=== PATIENT | female | born 1995 | race Caucasian/White ===

== ENCOUNTER 2017-02-18 13:15 | Inpatient (IN) | payer OTHER ==
[2017-02-18 14:30] LABS: Hematocrit 37 % (35-47); Hemoglobin 12.4 g/dl (12.0-16.0); Mean Corpuscular HGB Conc 34 g/dl (31-36); Mean Corpuscular Hemoglobin 29 pg (27-31); Mean Corpuscular Volume 84 fL (80-97); Mean Platelet Volume 10 um3 (7.4-10.4); Red Blood Count 4.33 10^6/ul (4.0-5.4); Red Cell Distribution Width 14 % (10.5-15); Urine Bilirubin Negative (Negative); Urine Glucose Negative (Negative); Urine Nitrite Negative (Negative); White Blood Count 6.3 10^3/ul (3.5-10.8)
[2017-02-18 14:50] LABS: ALT 13 U/L (7-52); AST 16 U/L (13-39); Albumin 4.3 g/dL (3.2-5.2); Alkaline Phosphatase 80 U/L (34-104); Anion Gap 5 mmol/L (2-11); BUN/Creatinine Ratio 13.8 (8-20); Blood Urea Nitrogen 12 mg/dL (6-24); CO2 Carbon Dioxide 25 mmol/L (22-32); Calcium 9.2 mg/dL (8.6-10.3); Chloride 108 mmol/L (101-111); EGFR African American 107.9 (>60); EGFR Non-African American 83.9 (>60); Globulin 2.6 g/dL (2-4); Glucose 84 mg/dL (70-100); Potassium 4.1 mmol/L (3.5-5.0); Sodium 138 mmol/L (133-145); Total Protein 6.9 g/dL (6.4-8.9)
[2017-02-18 14:58] LABS: Benzodiazepine Urine Screen None Detected (None Detect)
[2017-02-18 15:01] LABS: Acetaminophen < 15 mcg/mL; Alcohol < 10 mg/dL (<10); Salicylate < 2.50 mg/dL (<30)
[2017-02-18 15:19] LABS: TSH (Thyroid Stimulating Horm) 0.93 mcIU/mL (0.34-5.60)
--- NOTE | 2017-02-18 17:57 | ED ---
Psychiatric Complaint - HPI Summary HPI Summary: Patient presents to the ED with CC of suicidal ideations. She told her therapist today she wanted to "jump off a bridge." Denies HI. Denies self harm behaviors, drugs or ETOH use. She has been having these thoughts for years per patient, but have recently gotten worse. School is a stressor. Denies any history of bipolar or queenie. Denies pain at this time. Notes to anxiety which is worse now that she is in the ED, but again states she does not need medication for relief and just wants to speak with someone about her SI. - History Of Current Complaint Chief Complaint: EDMentalHealth Time Seen by Provider: 02/18/17 13:23 Hx Obtained From: Patient ?: No Onset/Duration: Gradual Onset Timing: Hours Severity Initially: Moderate Severity Currently: Moderate Character: Depressed, Anxious Aggravating Factor(s): Nothing Alleviating Factor(s): Counseling Associated Signs And Symptoms: Positive: Social Withdrawal, Social Isolation Related History: Positive For: Prior Psychiatric Issues - depression Has Suicidal: Reports: Thoughts - jump off a bridge - Risk Factor(s) Completed Suicide Risk Factors: Negative - Allergies/Home Medications Allergies/Adverse Reactions: Allergies Allergy/AdvReac Type Severity Reaction Status Date / Time No Known Allergies Allergy Verified 02/18/17 13:31 PMH/Surg Hx/FS Hx/Imm Hx Previously Healthy: Yes Psychiatric History: Denies: Hx Eating Disorder, Hx of Violent Episodes Against Others - Immunization History Hx Pertussis Vaccination: No Immunizations Up to Date: Unable to Obtain/Confirm Infectious Disease History: No Infectious Disease History: Denies: Traveled Outside the [place] in Last 30 Days - Social History Occupation: Student Lives: With Family Alcohol Use: Occasionally Hx Substance Use: Yes Substance Use Type: Reports: Marijuana Substance Use Comment - Amount & Last Used: weekly Hx Tobacco Use: Yes Smoking Status (MU): Current Some Day Smoker Review of Systems Constitutional: Negative Negative: Fever, Chills, Fatigue Negative: Photophobia, Blurred Vision ENT: Negative Negative: Palpitations, Chest Pain Negative: Shortness Of Breath, Cough Genitourinary: Negative Positive: no symptoms reported, see HPI Musculoskeletal: Negative Neurological: Negative Positive: Anxious, Depressed All Other Systems Reviewed And Are Negative: Yes Physical Exam Triage Information Reviewed: Yes Vital Signs On Initial Exam: Initial Vitals Temp Pulse Resp BP Pulse Ox 99.2 F 91 16 140/76 100 10/11/17 13:28 02/18/17 13:28 02/18/17 13:28 02/18/17 13:28 02/18/17 13:28 Vital Signs Reviewed: Yes Appearance: Positive: Well-Appearing, Well-Nourished Skin: Positive: Warm, Skin Color Reflects Adequate Perfusion Head/Face: Positive: Normal Head/Face Inspection Eyes: Positive: EOMI, PADMINI, Conjunctiva Clear Neck: Positive: Supple, No Lymphadenopathy Respiratory/Lung Sounds: Positive: Clear to Auscultation, Breath Sounds Present Cardiovascular: Positive: Normal, RRR, Pulses are Symmetrical in both Upper and Lower Extremities Musculoskeletal: Positive: Normal, Strength/ROM Intact Neurological: Positive: Normal, Sensory/Motor Intact, Alert, Oriented to Person Place, Time, Speech Normal Psychiatric: Positive: Anxious, Depressed, Other - patient is cooperative for exam and in NAD AVPU Assessment: Alert - [place] Coma Scale Coma Scale Total: 15 Diagnostics - Vital Signs Vital Signs Temp Pulse Resp BP Pulse Ox 02/18/17 13:28 99.2 F 91 16 140/76 100 - Laboratory Lab Results: Lab Results 02/18/17 02/18/17 02/18/17 Range/Units 14:15 14:15 14:15 WBC 6.3 (3.5-10.8) 10^3/ul RBC 4.33 (4.0-5.4) 10^6/ul Hgb 12.4 (12.0-16.0) g/dl Hct 37 (35-47) % MCV 84 (80-97) fL MCH 29 (27-31) pg MCHC 34 (31-36) g/dl RDW 14 (10.5-15) % Plt Count 173 (150-450) 10^3/ul MPV 10 (7.4-10.4) um3 Neut % (Auto) 63.7 (38-83) % Lymph % (Auto) 27.9 (25-47) % Smyth % (Auto) 6.3 (1-9) % Eos % (Auto) 1.4 (0-6) % Baso % (Auto) 0.7 (0-2) % Absolute Neuts (auto) 4.0 (1.5-7.7) 10^3/ul Absolute Lymphs (auto) 1.8 (1.0-4.8) 10^3/ul Absolute Monos (auto) 0.4 (0-0.8) 10^3/ul Absolute Eos (auto) 0.1 (0-0.6) 10^3/ul Absolute Basos (auto) 0 (0-0.2) 10^3/ul Absolute Nucleated RBC 0 10^3/ul Nucleated RBC % 0 Sodium 138 (133-145) mmol/L Potassium 4.1 (3.5-5.0) mmol/L Chloride 108 (101-111) mmol/L Carbon Dioxide 25 (22-32) mmol/L Anion Gap 5 (2-11) mmol/L BUN 12 (6-24) mg/dL Creatinine 0.87 (0.51-0.95) mg/dL Est GFR ( Amer) 107.9 (>60) Est GFR (Non-Af Amer) 83.9 (>60) BUN/Creatinine Ratio 13.8 (8-20) Glucose 84 (70-100) mg/dL Calcium 9.2 (8.6-10.3) mg/dL Total Bilirubin 0.40 (0.2-1.0) mg/dL AST 16 (13-39) U/L ALT 13 (7-52) U/L Alkaline Phosphatase 80 (34-104) U/L Total Protein 6.9 (6.4-8.9) g/dL Albumin 4.3 (3.2-5.2) g/dL Globulin 2.6 (2-4) g/dL Albumin/Globulin Ratio 1.7 (1-3) TSH 0.93 (0.34-5.60) mcIU/mL Urine Color Urine Appearance Urine pH (5-9) Ur Specific [place] (1.010-1.030) Urine Protein (Negative) Urine Ketones (Negative) Urine Blood (Negative) Urine Nitrate (Negative) Urine Bilirubin (Negative) Urine Urobilinogen (Negative) Ur Leukocyte Esterase (Negative) Urine Glucose (Negative) Salicylates < 2.50 (<30) mg/dL Urine Opiates Screen None detected (None Detect) Acetaminophen < 15 mcg/mL Ur Barbiturates Screen None detected (None Detect) Ur Phencyclidine Scrn None detected (None Detect) Ur Amphetamines Screen None detected (None Detect) U Benzodiazepines Scrn None detected (None Detect) Urine Cocaine Screen None detected (None Detect) U Cannabinoids Screen Presumptive positive H (None Detect) Serum Alcohol < 10 (<10) mg/dL 02/18/17 Range/Units 14:15 WBC (3.5-10.8) 10^3/ul RBC (4.0-5.4) 10^6/ul Hgb (12.0-16.0) g/dl Hct (35-47) % MCV (80-97) fL MCH (27-31) pg MCHC (31-36) g/dl RDW (10.5-15) % Plt Count (150-450) 10^3/ul MPV (7.4-10.4) um3 Neut % (Auto) (38-83) % Lymph % (Auto) (25-47) % Smyth % (Auto) (1-9) % Eos % (Auto) (0-6) % Baso % (Auto) (0-2) % Absolute Neuts (auto) (1.5-7.7) 10^3/ul Absolute Lymphs (auto) (1.0-4.8) 10^3/ul Absolute Monos (auto) (0-0.8) 10^3/ul Absolute Eos (auto) (0-0.6) 10^3/ul Absolute Basos (auto) (0-0.2) 10^3/ul Absolute Nucleated RBC 10^3/ul Nucleated RBC % Sodium (133-145) mmol/L Potassium (3.5-5.0) mmol/L Chloride (101-111) mmol/L Carbon Dioxide (22-32) mmol/L Anion Gap (2-11) mmol/L BUN (6-24) mg/dL Creatinine (0.51-0.95) mg/dL Est GFR ( Amer) (>60) Est GFR (Non-Af Amer) (>60) BUN/Creatinine Ratio (8-20) Glucose (70-100) mg/dL Calcium (8.6-10.3) mg/dL Total Bilirubin (0.2-1.0) mg/dL AST (13-39) U/L ALT (7-52) U/L Alkaline Phosphatase (34-104) U/L Total Protein (6.4-8.9) g/dL Albumin (3.2-5.2) g/dL Globulin (2-4) g/dL Albumin/Globulin Ratio (1-3) TSH (0.34-5.60) mcIU/mL Urine Color Yellow Urine Appearance Clear Urine pH 6.0 (5-9) Ur Specific [place] 1.016 (1.010-1.030) Urine Protein Negative (Negative) Urine Ketones Negative (Negative) Urine Blood Negative (Negative) Urine Nitrate Negative (Negative) Urine Bilirubin Negative (Negative) Urine Urobilinogen Negative (Negative) Ur Leukocyte Esterase Negative (Negative) Urine Glucose Negative (Negative) Salicylates (<30) mg/dL Urine Opiates Screen (None Detect) Acetaminophen mcg/mL Ur Barbiturates Screen (None Detect) Ur Phencyclidine Scrn (None Detect) Ur Amphetamines Screen (None Detect) U Benzodiazepines Scrn (None Detect) Urine Cocaine Screen (None Detect) U Cannabinoids Screen (None Detect) Serum Alcohol (<10) mg/dL Result Diagrams: 02/18/17 14:15 02/18/17 14:15 Lab Statement: Any lab studies that have been ordered have been reviewed, and results considered in the medical decision making process. Course/Dx - Course Course Of Treatment: patient is cooperative for exam and in NAD. Suicidal ideations. Denies HI or self harm. Denies recent drug or ETOH use. Good outpatient follow up and has a therapist. She is cleared for MHU and is sent to [facility] at 3pm. - Differential Dx/Clinical Impression Differential Diagnosis/HQI/PQRI: Positive: Anxiety, Depression, Suicidal Ideation, Suicidal Gesture Provider Diagnosis: Suicidal ideation Discharge - Discharge Plan Condition: Stable Disposition: OTHER Discharge Disposition Comment: Patient sent to [facility] at 3pm for MHU
[2017-02-19] MEDS ORDERED: hydrOXYzine HCL TAB* 50 MG ONE (02:43)
[2017-02-19] MEDS ORDERED: Al Hydrox/Mg Hydrox/Simet LIQ* 30 ML UDC PO PRN (03:07)
[2017-02-19] MEDS ORDERED: Acetaminophen TAB* 325 MG PO PRN (03:07)
[2017-02-19 07:39] VITALS: BP 115/62
[2017-02-19] MEDS ORDERED: Fluoxetine LIQ* 20 MG/5 ML UDC PO SCH (09:00)
[2017-02-19] MEDS: Vitamin THERAPEUTIC TAB PO SCH (11:22)
[2017-02-19] MEDS: FLUoxetine CAP* 20 MG PO SCH (11:22)
[2017-02-19] MEDS: hydrOXYzine HCL TAB* 10 MG PO PRN ×2 (11:22→17:50)
[2017-02-19] MEDS ORDERED: Cetirizine* 10 MG TAB PO SCH (12:00)
--- NOTE | 2017-02-19 14:15 | PN ---
MHU: Group Therapy Note - Service Type Service Type: [id number] Group Psychotherapy - Cognitive Behavioral Group Therapy ( CBT):Patient was attentive and participatory in CBT programming this morning, and remained in good behavioral control. Patient expressed positive insights regarding relevant treatment interventions and goals.
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
[2017-02-19] MEDS ORDERED: hydrOXYzine HCL TAB* 50 MG PO SCH (21:00)
[2017-02-20] MEDS: Vitamin THERAPEUTIC TAB PO SCH (08:33)
[2017-02-20] MEDS: hydrOXYzine HCL TAB* 10 MG PO PRN (08:33)
[2017-02-20] MEDS: FLUoxetine CAP* 20 MG PO SCH (08:34)
[2017-02-20] MEDS ORDERED: Influenza VAC *QUAD* 2017-18* 0.5 ML SYRINGE IM ONE (09:00)
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
--- NOTE | 2017-02-20 22:34 | DS ---
CC: [facility] * DISCHARGE SUMMARY: DATE OF ADMISSION: 02/18/17 DATE OF DISCHARGE: 02/20/17 SUPERVISING PSYCHIATRIST: Dr. Praveen Lebron * (DICTATED Vidhya ERNANDEZ NP) DISCHARGE DIAGNOSES: 1. Major depressive disorder and generalized anxiety disorder. 2. Vitamin D deficiency, rule out borderline personality traits. CONDITION AT TIME OF DISCHARGE: Improved. The patient is euthymic with a bright affect. She denies suicidal ideation. She reports eagerness to return to campus and resume academic responsibilities. She states that she was concerned about bipolar disorder as it runs in her family. Her MMPI results were reviewed with her by the psychologist and these were reassuring to her. She is agreeable to continue with current medications and regular therapy to target depression and anxiety. She reports that she spoke with friends last evening and these conversations were supportive. MENTAL STATUS EXAM: The patient is a tall, moderately framed white female, who appears stated age. She is well-groomed, wearing hospital paper scrubs that she chose to wear as pyjamas. She is pleasant and cooperative. She has full range of affect. She is alert and oriented x3. Her concentration is good. Her memory is 3/3. Her mood is "good." She appears anxious at times, is easily redirectable and able to identify. She is anxious in regards to the results of the MMPI testing. She reports relief after receiving results and explanations. Her speech is soft with regular rate and rhythm. No stuttering noted. Thought process is logical, goal directed. Speech is oriented. Content of thought is negative for suicidal ideation. She denies preoccupation , obsessions, rituals or delusions. She denies AV hallucinations. Her insight is fair. Her judgement is good. Fund of knowledge is adequate. DISCHARGE INSTRUCTIONS: Instructions will be given to the patient by nursing staff. A. Medication: 1. Fluoxetine 20 mg one p.o. daily. 2. Hydroxyzine 10 mg p.o. t.i.d. p.r.n. anxiety and insomnia. These were electronically prescribed to [facility]. B. Diet: Regular. C. Activity: Ambulation as tolerated. Tobacco cessation not applicable. Vitamin D level was added on to blood work and we are awaiting the results. D. Followup care: The patient will follow up with [facility] and see available therapist this afternoon. She will continue seeing Sabrina Merlos regularly and Dr. Duarte for psychiatric medications. HOSPITAL COURSE: A. Reason for admission: The patient was encouraged to come to the emergency department due to suicidal ideation as this was safety plan identified by her and her therapist at [facility]. B. Psychiatric treatment rendered: The patient was admitted to adult behavioral services unit on voluntary status. Her code status was full. Safety checks were done every 15 minutes. She participated fully in intensive milieu and individual sessions with staff and psychoeducational groups. She completed MMPI and results were discussed with her by a psychologist. We increased fluoxetine to 20 mg as was the plan per outpatient provider. She denies agitation or adverse side effects. She has been utilizing hydroxyzine at a low dose p.r.n. anxiety and reports efficacy. She slept well last night and appears rested today. She will be discharged via taxi back to [facility] and given written instructions by nursing staff. She also be given information about crisis resources and to return to the emergency department should symptoms worsen. ANTHONY ERNANDEZ NP [id number]/CPS #: [id number] ANGEL
== END 2017-02-20 11:30 | disposition home or self-care (01) | DRG 881 ==
LOC: ED 13:15 → BSU 02-19 00:59
PROVIDERS: ADMIT Psychiatry & Neurology Psychiatry; ATTEND Psychiatry & Neurology Psychiatry
DX: F32.9 Major depressive disorder, single episode, unspecified (principal); R45.851 Suicidal ideations; F41.1 Generalized anxiety disorder; E55.9 Vitamin D deficiency, unspecified; Z79.899 Other long term (current) drug therapy; Z81.8 Family history of other mental and behavioral disorders
CPT/HCPCS: 36415; 80053; 80307; 80320; 80329; 81003; 82652; 84443; 85025; 90686; 90853; 96102; 99222; 99238; A9270-GY; G0480

== ENCOUNTER 2018-04-08 13:58 | Emergency (ER) | payer OTHER ==
[2018-04-08 17:07] VITALS: BP 123/68
--- NOTE | 2018-04-08 19:26 | ED ---
Abdominal Pain/Female - HPI Summary HPI Summary: Pt. is a 22-year-old female who presents emergency department for upper and lower abdominal pain 2 days. Pain is sharp and cramping in nature. Patient also notes that she has been having an irregular menstrual cycle noting 2 periods this month. She notes she started bleeding again 2 days ago. She notes changing pad twice per day. She denies URI sxs, fever, dysuria, vaginal discharge, V/D. She has no past medical hx. Symptoms are moderate in severity. Pt. notes recently starting with nexplanon. Pt. is sexually active but denies concern for - History of Current Complaint Chief Complaint: UCAbdominalPain Stated Complaint: ABD PAIN PERSONAL Time Seen by Provider: 04/08/18 14:18 Hx Obtained From: Patient Pain Intensity: 2 Pain Scale Used: 0-10 Numeric Allergies/Adverse Reactions: Allergies Allergy/AdvReac Type Severity Reaction Status Date / Time No Known Allergies Allergy Verified 04/08/18 14:08 Home Medications: Home Medications Gabapentin CAP(*) [Neurontin 400 mg CAP(*)] 1 tab PO DAILY 04/08/18 [History Confirmed 04/08/18] PMH/Surg Hx/FS Hx/Imm Hx Previously Healthy: Yes Sensory History: Denies: Hx Contacts or Glasses, Hx Hearing Aid Opthamlomology History: Denies: Hx Contacts or Glasses Psychiatric History: Reports: Hx Depression, Hx Community Mental Health Tx - at school Denies: Hx Eating Disorder, Hx Inpatient Treatment, Hx of Violent Episodes Against Others Infectious Disease History: No Infectious Disease History: Denies: Traveled Outside the [place] in Last 30 Days - Family History Known Family History: Positive: Non-Contributory - Social History Occupation: Student Lives: Dormitory/Roommates Alcohol Use: Occasionally Hx Substance Use: Yes Substance Use Type: Reports: Marijuana Substance Use Comment - Amount & Last Used: weekly Hx Tobacco Use: Yes Smoking Status (MU): Current Some Day Smoker Type: Cigarettes Amount Used/How Often: smoked occasionally over summer, not since Review of Systems Constitutional: Negative Negative: Fever, Chills Eyes: Negative ENT: Negative Cardiovascular: Negative Respiratory: Negative Positive: Abdominal Pain. Negative: Vomiting, Diarrhea, Nausea Positive: other - vaginal bleeding . Negative: burning, dysuria, discharge, flank pain, hematuria Skin: Negative Neurological: Negative All Other Systems Reviewed And Are Negative: Yes Physical Exam Triage Information Reviewed: Yes Vital Signs On Initial Exam: Initial Vitals Temp Pulse Resp BP Pulse Ox 98 F 72 16 122/75 100 04/08/18 14:04 04/08/18 14:04 04/08/18 14:04 04/08/18 14:04 04/08/18 14:04 Vital Signs Reviewed: Yes Appearance: Positive: Well-Appearing - Pt. sitting on bed in NAD. Skin: Positive: Warm, Dry Head/Face: Positive: Normal Head/Face Inspection Eyes: Positive: Normal, EOMI ENT: Positive: Pharynx normal, TMs normal Neck: Positive: Supple Respiratory/Lung Sounds: Positive: Clear to Auscultation, Breath Sounds Present Cardiovascular: Positive: Normal, RRR Abdomen Description: Positive: Other: - Abd. is soft with mild diffuse tenderness, most to the RLQ. No rebound tenderness or guarding.. Negative: CVA Tenderness (R), CVA Tenderness (L) Neurological: Positive: Normal, CN Intact II-III Psychiatric: Positive: Affect/Mood Appropriate Diagnostics - Vital Signs Vital Signs Temp Pulse Resp BP Pulse Ox 04/08/18 16:30 98 F 90 16 123/68 98 04/08/18 14:04 98 F 72 16 122/75 100 - Laboratory Lab Results: Lab Results 04/08/18 Range/Units 15:12 POC Ur Test Negative (Negative) Lab Statement: Any lab studies that have been ordered have been reviewed, and results considered in the medical decision making process. Discharge - Discharge Plan Condition: Good Disposition: HOME Patient Education Materials: Dysfunctional Uterine Bleeding (ED), Ovarian Cyst (ED) Referrals: [facility] - Larry NOEL [Primary Care Provider] - Additional Instructions: Follow up with [facility] as scheduled for referral to TELEGRAPH SERVICE RATER Take motrin 600mg-800mg every 8 hours as directed for pain Apply warm compress to help with pain Go to the ER for increased pain, fever, vomiting or if concerned - Billing Disposition and Condition Condition: GOOD Disposition: Home
--- NOTE | 2018-04-08 20:52 | UC ---
Abdominal Pain Female HPI - HPI Summary HPI Summary: Pt. is a 22-year-old female who presents emergency department for upper and lower abdominal pain 2 days. Pain is sharp and cramping in nature. Patient also notes that she has been having an irregular menstrual cycle noting 2 periods this month. She notes she started bleeding again 2 days ago. She notes changing pad twice per day. She denies URI sxs, fever, dysuria, vaginal discharge, V/D. She has no past medical hx. Symptoms are moderate in severity. Pt. notes recently starting with nexplanon. Pt. is sexually active but denies concern for STIs. No current modifying factors. - History of Current Complaint Chief Complaint: UCAbdominalPain Stated Complaint: ABD PAIN PERSONAL Time Seen by Provider: 04/08/18 14:18 Hx Obtained From: Patient Pain Intensity: 2 Pain Scale Used: 0-10 Numeric Allergies/Adverse Reactions: Allergies Allergy/AdvReac Type Severity Reaction Status Date / Time No Known Allergies Allergy Verified 04/08/18 14:08 Home Medications: Home Medications Gabapentin CAP(*) [Neurontin 400 mg CAP(*)] 1 tab PO DAILY 04/08/18 [History Confirmed 04/08/18] PMH/Surg Hx/FS Hx/Imm Hx Previously Healthy: Yes - Surgical History Surgical History: None - Family History Known Family History: Positive: Non-Contributory - Social History Occupation: Student Lives: Dormitory/Roommates Alcohol Use: Occasionally Substance Use Type: Marijuana Substance Use Comment - Amount & Last Used: weekly Smoking Status (MU): Current Some Day Smoker Type: Cigarettes Amount Used/How Often: smoked occasionally over summer, not since - Immunization History Most Recent Influenza Vaccination: unsure Most Recent Pneumonia Vaccination: never Review of Systems All Other Systems Reviewed And Are Negative: Yes Constitutional: Positive: Negative Skin: Positive: Negative Eyes: Positive: Negative ENT: Positive: Negative Respiratory: Positive: Negative Cardiovascular: Positive: Negative Gastrointestinal: Positive: Abdominal Pain. Negative: Vomiting, Diarrhea, Nausea Genitourinary: Positive: Abnormal Bleeding. Negative: Dysuria, Hematuria, Frequency, Vaginal/Penile Burning, Vaginal/Penile Itching, Vaginal/Penile Discharge, Vaginal/Penile Pain Motor: Positive: Negative Neurovascular: Positive: Negative Musculoskeletal: Positive: Negative Neurological: Positive: Negative Is Patient Immunocompromised?: No Physical Exam Triage Information Reviewed: Yes Appearance: Well-Appearing - Pt. sitting on bed in NAD> Vital Signs: Initial Vital Signs Temp 98 F 04/08/18 14:04 Pulse 72 04/08/18 14:04 Resp 16 04/08/18 14:04 BP 122/75 04/08/18 14:04 Pulse Ox 100 04/08/18 14:04 Vital Signs Reviewed: Yes Eyes: Positive: Conjunctiva Clear ENT: Positive: Pharynx normal, TMs normal Neck: Positive: Supple Respiratory: Positive: Lungs clear, Normal breath sounds Abdomen Description: Positive: Other: - Abd. is soft with mild diffuse tenderness, most to the RLQ. No rebound tenderness or guarding.. Negative: CVA Tenderness (R), CVA Tenderness (L) Musculoskeletal Exam: Normal Neurological Exam: Normal Psychological Exam: Normal Skin Exam: Normal Abd Pain Female Course/Dx - Course Course Of Treatment: Pt. presenting for lower abd. pain and abnormal vaginal. She is afebrile. She has a benign abd. exam. She walks to and from bathroom without difficulty. Pelvic us obtained for further evalutation. GC and chlamydia pending. U/S read per radiology: Right ovary measures 5.5 x 3.1 x 4.0 cm with a right ovarian cyst measuring 3.6 x 1.9 x. 2.9 cm. The left ovary measures 3.0 x 1.4 x 1.9 cm. Doppler interrogation demonstrates. flow in both ovaries. Results discussed with pt. Negative . Suspect pain is secondary to cyst. Pt. states she has an apt. with [facility] for next week. Advised to keep this apt. and will need referral to NASCAR PIT CREW PERSON. Recommend motrin as directed. Advised pt. to go to ER for further evaluation with blood work and possible further imaging if pain increases, fever, vomiting or if concerned. Pt. understands and agrees with plan. - Differential Dx/Diagnosis Differential Diagnosis: Appendicitis, Bowel Obstruction, Constipation, Ectopic , Hepatitis, Pancreatitis, Pelvic Inflammatory Disease, Peptic Ulcer Disease, , Renal Colic, Urinary Tract Infection Provider Diagnosis: Ovarian cyst, Abnormal vaginal bleeding Discharge - Sign-Out/Discharge Documenting (check all that apply): Patient Departure All imaging exams completed and their final reports reviewed: Yes - Discharge Plan Condition: Good Disposition: HOME Patient Education Materials: Dysfunctional Uterine Bleeding (ED), Ovarian Cyst (ED) Referrals: [facility] - Larry NOEL [Primary Care Provider] - Additional Instructions: Follow up with [facility] as scheduled for referral to [employer]CAR PIT CREW PERSON Take motrin 600mg-800mg every 8 hours as directed for pain Apply warm compress to help with pain Go to the ER for increased pain, fever, vomiting or if concerned - Billing Disposition and Condition Condition: GOOD Disposition: Home
--- NOTE | 2018-04-09 16:44 | UC ---
- Progress Note Progress Note: 04/09/2018 GC/chlamydia=negative No change Andie Wilcox PA-C Course/Dx - Diagnoses Provider Diagnoses: Ovarian cyst, Abnormal vaginal bleeding Discharge - Sign-Out/Discharge Documenting (check all that apply): Patient Departure - d/c home All imaging exams completed and their final reports reviewed: Yes - Discharge Plan Condition: Good Disposition: HOME Patient Education Materials: Dysfunctional Uterine Bleeding (ED), Ovarian Cyst (ED) Referrals: [facility] - Larry NOEL [Primary Care Provider] - Additional Instructions: Follow up with [facility] as scheduled for referral to LEARNING SUPPORT SERVICES DIRECTOR Take motrin 600mg-800mg every 8 hours as directed for pain Apply warm compress to help with pain Go to the ER for increased pain, fever, vomiting or if concerned - Billing Disposition and Condition Condition: GOOD Disposition: Home
== END 2018-04-08 16:30 | disposition home or self-care (01) ==
LOC: UCEAST 13:58
DX: N83.201 Unspecified ovarian cyst, right side (principal); N93.9 Abnormal uterine and vaginal bleeding, unspecified; Z32.02 Encounter for pregnancy test, result negative; Z72.0 Tobacco use
CPT/HCPCS: 76830; 84702; 87491; 87591; 99211; G0463